=== PATIENT | male | born 2000 | race Caucasian/White ===

== ENCOUNTER 2023-01-05 19:36 | Emergency (ER) | payer BC ==
[2023-01-05] MEDS ORDERED: FLUORESCEIN STRIPS 1 MG STRIP RIGHT EYE ONE ×2 (19:53→20:13)
[2023-01-05] MEDS ORDERED: PROPARACAINE 0.5% OPHTH DROPS 15 ML BTL RIGHT EYE STA (19:53)
--- NOTE | 2023-01-05 21:24 | ED ---
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 Patient states he woke from a nap this evening with intense pain in the right eye. Eyes profusely watering and patient is unable to open the eye to do such irritation. No purulent discharge. No known injury or trauma. No contact lens use. Patient does work in a factory but denies any incidences that may have caused a foreign body in eye.. - Related Data Home Medications Medication Instructions Recorded Confirmed Dorzolamide HCl/Timolol Maleat 1 drop LEFT EYE DIRECTED 02/18/15 02/18/15 [Cosopt Eye Drops] Latanoprost Ophth [Xalatan 0.005%] 1 drop LEFT EYE DIRECTED 02/18/15 02/18/15 Travoprost [Travatan Z 0.004%] 1 drops LEFT EYE DIRECTED 02/18/15 02/18/15 Allergies Allergy/AdvReac Type Severity Reaction Status Date / Time No Known Allergies Allergy Verified 02/18/15 13:35 Review of Systems ROS Statement: Those systems with pertinent positive or pertinent negative responses have been documented in the HPI. ROS Other: All systems not noted in ROS Statement are negative. Past Medical History Additional Past Medical History / Comment(s): sturge edward, blind in left eye History of Any Multi-Drug Resistant Organisms: None Reported Additional Past Surgical History / Comment(s): eye surgery Past Psychological History: No Psychological Hx Reported Past Alcohol Use History: None Reported Past Drug Use History: None Reported General Exam General appearance: alert, in no apparent distress Head exam: Present: atraumatic, normocephalic, normal inspection Eye exam: Present: other (Right eye is injected, watering profusely, patient is having a difficult time keeping the eye open secondary to pain) Expanded IOP (R) in mmH Neck exam: Present: normal inspection, full ROM Respiratory exam: Absent: respiratory distress Neurological exam: Present: alert, oriented X3, CN II-XII intact Psychiatric exam: Present: normal affect, normal mood Skin exam: Present: warm, dry, intact, normal color. Absent: rash Course Vital Signs 01/05/23 01/05/23 19:41 21:47 Temperature 98.7 F 98.1 F Pulse Rate 64 71 Respiratory 18 19 Rate Blood Pressure 116/68 126/77 O2 Sat by Pulse 98 99 Oximetry Medical Decision Making - Medical Decision Making Was pt. sent in by a medical professional or institution (, RASHIDA, DIRECTOR FUNDS DEVELOPMENT, urgent care, hospital, or care home...) When possible be specific @ -No Did you speak to anyone other than the patient for history (EMS, parent, family, police, friend...)? What history was obtained from this source @ -No Did you review nursing and triage notes (agree or disagree)? Why? @ -I reviewed and agree with nursing and triage notes Were old charts reviewed (outside hosp., previous admission, EMS record, old EKG, old radiological studies, urgent care reports/EKG's, care home records)? Report findings @ -No old charts were reviewed Differential Diagnosis (chest pain, altered mental status, abdominal pain women, abdominal pain men, vaginal bleeding, weakness, fever, dyspnea, syncope, headache, dizziness, GI bleed, back pain, seizure, CVA, palpatations, mental health, musculoskeletal)? @ -Differential includes corneal abrasion, corneal ulcer, foreign body, acute angle-closure glaucoma, this is not an all inclusive list EKG interpreted by me (3pts min.). @ -As above X-rays interpreted by me (1pt min.). @ -None done CT interpreted by me (1pt min.). @ -None done U/S interpreted by me (1pt. min.). @ -None done What testing was considered but not performed or refused? (CT, X-rays, U/S, labs)? Why? @ -None What meds were considered but not given or refused? Why? @ -None Did you discuss the management of the patient with other professionals (professionals i.e. RASHIDA Castillo, DIRECT[employer] FUNDS DEVELOPMENT, lab, RT, psych nurse, drug abuse social worker, software requirements engineer, teacher, transit authority police officer, registered nurse hh case manager)? Give summary @ -I spoke with container maker economic forecaster Dr. Campbell who advised placing the patient on moxifloxacin eyedrops and ketorolac eyedrops and having him follow-up in office on Saturday. I received a call back from the patient's container maker Dr. Huffman, he was in agreement with the plan advised by Dr. Campbell Was smoking cessation discussed for >3mins.? @ -No Was critical care preformed (if so, how long)? @ -No Were there social determinants of health that impacted care today? How? (Homelessness, low income, unemployed, alcoholism, drug addiction, transportation, low edu. Level, literacy, decrease access to med. care, residential, rehab)? @ -No Was there de-escalation of care discussed even if they declined (Discuss DNR or withdrawal of care, Hospice)? DNR status @ -No What co-morbidities impacted this encounter? (DM, HTN, Smoking, COPD, CAD, Cancer, CVA, ARF, Chemo, Hep., AIDS, mental health diagnosis, sleep apnea, morbid obesity)? @ -Sturge-Gomes. Glaucoma Was patient admitted / discharged? Hospital course, mention meds given and route, prescriptions, significant lab abnormalities, going to OR and other pertinent info. @ -22-year-old male presenting with chief complaint of right eye pain that started suddenly this evening. Patient has glaucoma and is blind in the left eye. After applying proparacaine the right eye is clearly shows conjunctival injection and irritation. There is a large amount of uptake on fluorescein stai roshan, approximately 75% of the eye. Pressure in the affected eye is normal at 18. I spoke with container maker on-call who advised starting the patient on moxifloxacin eyedrops and ketorolac eyedrops for pain and having him follow-up in the office on Saturday. Patient is agreeable with this plan.Follow-up with PCP. Report back to ER with any new or worsening symptoms. Discussed return parameters and answered all questions. Patient conveyed verbal understanding and agreed to the plan. I discussed this case in detail with my attending Dr. Saavedra Undiagnosed new problem with uncertain prognosis? @ -No Drug Therapy requiring intensive monitoring for toxicity (Heparin, Nitro, Insulin, Cardizem)? @ -No Were any procedures done? @ -No Diagnosis/symptom? @ -Corneal abrasion Acute, or Chronic, or Acute on Chronic? @ -Acute Uncomplicated (without systemic symptoms) or Complicated (systemic symptoms)? @ -Complicated Side effects of treatment? @ -No Exacerbation, Progression, or Severe Exacerbation? @ -No Poses a threat to life or bodily function? How? (Chest pain, [place], [place], pneumonia, PE, COPD, DKA, ARF, appy, cholecystitis, CVA, Diverticulitis, Homicidal, Suicidal, threat to staff... and all critical care pts) @ -Potential threat to sight in the right eye Disposition Clinical Impression: Keratoconjunctivitis Disposition: HOME SELF-CARE Condition: Fair Instructions (If sedation given, give patient instructions): Corneal Ulcer (ED) Additional Instructions: Follow-up with ophthalmology on Saturday. Report back to ER if any new or worsening symptoms. Apply moxifloxacin eye drops to affected eye 4 times daily, this is the antibiotic eye drop Apply ketorolac drops to affected eye 4 times daily as needed for pain Is patient prescribed a controlled substance at d/c from ED?: No Referrals: Kathi Alfred DO [Primary Care Provider] - 1-2 days Tony Huffman MD [STAFF PHYSICIAN] - 01/07/23 Time of Disposition: 21:24
[2023-01-05 21:49] VITALS: BP 126/77; PULSE 71; RESP 19; TEMP 98.1
[2023-01-05] MEDS ORDERED: KETOROLAC 0.5% OPHTH DROPS 5 ML BTL RIGHT EYE SCH (22:00)
[2023-01-05] MEDS ORDERED: MOXIFLOXACIN HCL 0.5% DROPS 3 ML BTL RIGHT EYE SCH (22:00)
== END 2023-01-05 21:50 | disposition home or self-care (01) ==
LOC: EC 19:36
DX: H16.291 Other keratoconjunctivitis, right eye (principal)
CPT/HCPCS: 99283